=== PATIENT | female | born 1955 | race Two or more races ===

== ENCOUNTER 2016-07-25 19:52 | Emergency (ER) | payer MEDICAID ==
[~2016-07-25] VITALS: Ht 165.1 cm; Wt 104.3 kg
[2016-07-25 19:52] VITALS: BP 130/69
--- NOTE | 2016-07-25 20:03 | Emergency Room Report ---
History of Present Illness General Chief Complaint: Syncope Source: Patient, EMS Present Illness HPI Patient is a 60-year-old female presented after increased altered level consciousness. The patient was noted to have a syncopal episode which lasted approximately one to 2 minutes. This resolved spontaneously. The patient was noted to have prior history of hypertension. She denies prior cardiac history. The patient stated she felt well earlier in the day. She had premature symptoms of lightheadedness prior to passing out. The patient stated that she had one jeremías prior to passing out. She states she normally is able to drink more alcohol than that without symptoms.As reports having prior history of anemia. Allergies: Coded Allergies: No Known Allergies (Unverified , 07/25/16) Patient History Past Medical History: see triage record Last Menstrual Period: NA Now: No Reviewed Nursing Documentation: PMH: Agreed, PSxH: Agreed Nursing Documentation-PMH Hx Hypertension: Yes Physical Exam Vital Signs Date Time Temp Pulse Resp B/P Pulse Ox O2 Delivery O2 Flow Rate FiO2 07/25/16 19:45 97.9 74 20 116/62 99 Room Air Medical Decision Making Diagnostic Impression: Primary Impression: Syncope ER Course Patient presented for syncope. lDifferential diagnosis included but not limited to syncope versus seizure. Potential causes for syncope included arrhythmia, dehydration, acute coronary syndrome, severe anemia, pulmonary embolus. Because of complexity of patient's case laboratory testing and imaging studies were ordered.Laboratory testing showed evidence of urinary tract infection. Patient was given IV antibiotics empirically. The patient was advised of the need for inpatient observation due to her initial hypotension and lack of defined caused for syncope. The patient was advised risk benefits and alternatives of leaving AGAINST MEDICAL ADVICE and she indicates understanding. All questions are answered. Patient does not appear intoxicated the time of AMA. Labs Test 07/25/16 20:07 White Blood Count 10.0 K/UL (4.8-10.8) Red Blood Count 4.28 M/UL (4.20-5.40) Hemoglobin 14.6 G/DL (12.0-16.0) Hematocrit 40.3 % (37.0-47.0) Mean Corpuscular Volume 94 FL (80-99) Mean Corpuscular Hemoglobin 34.1 PG (27.0-31.0) Mean Corpuscular Hemoglobin Concent 36.2 G/DL (32.0-36.0) Red Cell Distribution Width 13.0 % (11.6-14.8) Platelet Count 306 K/UL (150-450) Mean Platelet Volume 7.2 FL (6.5-10.1) Neutrophils (%) (Auto) 54.1 % (45.0-75.0) Lymphocytes (%) (Auto) 37.8 % (20.0-45.0) Monocytes (%) (Auto) 5.6 % (1.0-10.0) Eosinophils (%) (Auto) 1.5 % (0.0-3.0) Basophils (%) (Auto) 1.1 % (0.0-2.0) Urine Color Yellow Urine Appearance Slightly cloudy Urine pH 5 (4.5-8.0) Urine Specific [place] 1.030 (1.005-1.035) Urine Protein 2+ (NEGATIVE) Urine Glucose (UA) Negative (NEGATIVE) Urine Ketones 2+ (NEGATIVE) Urine Occult Blood 1+ (NEGATIVE) Urine Nitrite Negative (NEGATIVE) Urine Bilirubin Negative (NEGATIVE) Urine Urobilinogen 1 MG/DL (0.0-1.0) Urine Leukocyte Esterase 2+ (NEGATIVE) Urine RBC 2-4 /HPF (0 - 2) Urine WBC 5-10 /HPF (0 - 2) Urine Squamous Epithelial Cells Few /LPF (NONE/OCC) Urine Bacteria Few /HPF (NONE) Sodium Level 140 mEQ/L (135-145) Potassium Level 3.6 mEQ/L (3.4-4.9) Chloride Level 99 mEQ/L (98-107) Carbon Dioxide Level 20 mEQ/L (20-30) Anion Gap 21 (5-15) Blood Urea Nitrogen 23 mg/dL (7-23) Creatinine 0.9 mg/dL (0.5-0.9) Estimat Glomerular Filtration Rate > 60 mL/min (>60) Glucose Level 83 mg/dL (74-106) Calcium Level 9.9 mg/dL (8.6-10.2) Total Bilirubin < 0.2 mg/dL (0.0-1.2) Aspartate Amino Transf (AST/SGOT) 6 U/L (5-40) Alanine Aminotransferase (ALT/SGPT) 5 U/L (3-33) Alkaline Phosphatase 53 U/L (35-104) Total Creatine Kinase 137 U/L (26-140) Creatine Kinase MB 1.7 ng/mL (< 3.8) Creatine Kinase MB Relative Index 1.2 Troponin I < 0.30 ng/mL (<=0.30) Pro-B-Type Natriuretic Peptide 19 pg/mL (0-125) Total Protein 8.1 g/dL (6.6-8.7) Albumin 4.4 g/dL (3.5-5.2) Globulin 3.7 g/dL Albumin/Globulin Ratio 1.1 (1.0-2.7) EKG Diagnostic Results Rate: normal Rhythm: NSR ST Segments: no acute changes Chest X-Ray Diagnostic Results EP Interpretation: Yes Findings: no consolidation, no effusion, no pneumothorax, no acute cardiopulmonary disease Number of Views: 1 Last Vital Signs Date Time Temp Pulse Resp B/P Pulse Ox O2 Delivery O2 Flow Rate FiO2 07/25/16 19:45 97.9 74 20 116/62 99 Room Air Status: improved Disposition: AGAINST MEDICAL ADVICE Condition: Serious Zeeshan Bingham July 25, 2016 20:03
[2016-07-25 21:06] LABS: APPEARANCE,URINE SLIGHTLY CLOUDY; BASOPHILS % (AUTO) 1.1 % (0.0-2.0); EOSINOPHILS % (AUTO) 1.5 % (0.0-3.0); KETONES,URINE 2+ (NEGATIVE); LEUKOCYTE ESTERASE ,URINE 2+ (NEGATIVE); LYMPHOCYTES % (AUTO) 37.8 % (20.0-45.0); MEAN CORPUSCULAR HEMOGLOBIN 34.1 PG (27.0-31.0); MEAN CORPUSCULAR HGB CONC 36.2 G/DL (32.0-36.0); MEAN CORPUSCULAR VOLUME 94 FL (80-99); MEAN PLATELET VOLUME 7.2 FL (6.5-10.1); MONOCYTES % (AUTO) 5.6 % (1.0-10.0); NEUTROPHILS % (AUTO) 54.1 % (45.0-75.0); NITRITE,URINE NEGATIVE (NEGATIVE); PH,URINE 5 (4.5-8.0); PLATELET COUNT 306 K/UL (150-450); PROTEIN,URINE 2+ (NEGATIVE); RED BLOOD COUNT 4.28 M/UL (4.20-5.40); UROBILINOGEN,URINE 1 MG/DL (0.0-1.0)
[2016-07-25] MEDS ORDERED: cefTRIAXone 1 GM in NS 55 ML IVPB ONE (21:15)
[2016-07-25 21:16] VITALS: BP 131/76
[2016-07-25 21:18] LABS: ALBUMIN/GLOBULIN RATIO 1.1 (1.0-2.7); ANION GAP 21 (5-15); CALCIUM 9.9 mg/dL (8.6-10.2); CARBON DIOXIDE 20 mEQ/L (20-30); CHLORIDE 99 mEQ/L (98-107); CREATININE 0.9 mg/dL (0.5-0.9); GLOMERULAR FILTRATION RATE > 60 mL/min (>60); HEMOLYSIS 42; POTASSIUM 3.6 mEQ/L (3.4-4.9); SODIUM 140 mEQ/L (135-145); TOTAL PROTEIN 8.1 g/dL (6.6-8.7)
[2016-07-25 21:19] LABS: TROPONIN I < 0.30 ng/mL (<=0.30)
[2016-07-25 21:24] LABS: BACTERIA,URINE FEW /HPF; SQUAMOUS EPITHELIAL CELL,UR FEW /LPF (NONE/OCC)
[2016-07-25 21:29] LABS: CKMB 1.7 ng/mL (< 3.8)
[2016-07-25 21:41] LABS: ALANINE AMINOTRANSFERASE 5 U/L (3-33)
[2016-07-25 21:43] LABS: ASPARTATE AMINO TRANSFERASE 6 U/L (5-40)
[2016-07-26 00:07] VITALS: BP 127/73
[2016-07-26 00:15] VITALS: BP 135/87
[2016-07-26] MEDS ORDERED: Mylanta II UD 30ml ORAL PRN (00:30)
[2016-07-26] MEDS ORDERED: Miralax 17gm pkt ORAL PRN (00:30)
[2016-07-26] MEDS ORDERED: LORazepam Inj 2mg/ml 1ml IV PRN (00:30)
[2016-07-26] MEDS ORDERED: Morphine Sulfate 2mg/ml Inj IVP PRN (00:30)
[2016-07-26] MEDS ORDERED: Nitroglycerin Subl 0.4mg tab (Bottle Of 25) SL PRN (00:30)
[2016-07-26] MEDS ORDERED: DuoNeb 0.5-3(2.5)mg/3ml neb HHN PRN (00:30)
[2016-07-26] MEDS ORDERED: Heparin 5000 units/ml inj SUBQ SCH (09:00)
--- NOTE | 2016-07-26 10:50 | Diagnostic Imaging Report ---
Indication: Shortness of breath Technique: Single portable AP view of the chest. Findings: Comparison: None. The bones and extra pulmonary soft tissues, cardiomediastinal silhouette, pulmonary vasculature and parenchyma, and pleural surfaces are unremarkable. IMPRESSION: Negative portable AP chest.
--- NOTE | 2016-07-26 14:24 | Cardiology Report ---
APPROVED REPORT EKG Measurement Heart [id number] Normal sinus rhythm Normal ECG
== END 2016-07-26 00:15 | disposition left against medical advice (07) ==
LOC: EDBD 19:52 → EMR 20:22 → EDBEDREQ 21:29 → EMR 07-26 00:15
DX: R55 Syncope and collapse (principal); I10 Essential (primary) hypertension; D64.9 Anemia, unspecified
CPT/HCPCS: 36415; 71010; 80053; 81003; 82550; 82553; 83880; 84484; 85025; 93005; 96360; 96374; 99284; J0696; 99283